=== PATIENT | male | born 1995 | race Caucasian/White ===

== ENCOUNTER 2022-05-30 06:13 | Day surgery (SDC) | payer OTHER, SELFPAY ==
[2022-05-30 06:57] VITALS: BP 113/84; PULSE 58; RESP 16; TEMP 36.4; O2SAT 100; BMI 28.5
[2022-05-30] MEDS: Lactated Ringers 1,000 ML 15 ML IV (07:01)
--- NOTE | 2022-05-30 08:01 | PCM.OPRPT ---
Problems Associated Problem List Diagnoses (1) Fracture of nasal bone with delayed healing: (2) Nasal septum fracture: Report of Operation Date of Procedure: 05/30/22 Pre-Operative Diagnosis: 1. nasal bone fracture 2. nasal septal fracture Post-Operative Diagnosis: 1. nasal bone fracture 2. nasal septal fracture Surgery/Procedure Performed:: 1. closed reduction nasal bones 2. closed reduction nasal septal fracture Surgeon: Ricky Patino Type of Anesthesia: General Description of Procedure: on the day of the procedure after appropriate informed consent was obtained, the patient was brought to the operating room and placed in supine position on the operating table. he was placed under general anesthesia by the anesthesiologist with an LMA. the bilateral nasal cavities were decongested with oxymetazoline soaked pledgets. the left nasal bone was lateralized with digital pressure and outfracturing with a boies elevator. septal forceps were used to correct the leftward septal deviation to the midline. a merocel was placed in the left nasal bone / valve area. he was awoken from anesthesia and transferred to the PACU in stable condition.
[2022-05-30] MEDS: Oxymetazoline 0.05% 1 SPRAY SPRAY.BTL 15 SPRAY (08:19)
[2022-05-30 08:43] VITALS: BP 113/84; BP 125/85; PULSE 69; RESP 16; TEMP 36.7; O2SAT 96
[2022-05-30 08:45] VITALS: BP 113/84; BP 128/81; PULSE 74; RESP 16; O2SAT 96
--- NOTE | 2022-05-30 08:58 | DCINST_ITS ---
Discharge Instructions Diet Discharge Diet: No restrictions Activity Discharge Activity: Return to Normal Activity Dressing / Incision Call your doctor if your incision/area has: Increased Pain/ Swelling Additional Dressing/Incision Instructions:: keep nasal cast dry. however, the morning of your follow up appt, get the cast very wet so it comes off easy in clinic. Follow Up Care Please Follow Up With: Ricky Patino MD When: 1 week Test Results: Test results from this visit will be discussed in further detail at your follow- up appointment, if applicable. Discharge Plan Admission Attending Provider: Ricky Patino Primary Care Provider: Jhoana Tomas Discharge Orders/Prescriptions Prescriptions: No Action NK Referrals / Follow Up: Jhoana Tomas DO [Primary Care Provider] - Disposition Disposition (needs filled in before D/C Order can be placed): Home, Self Care
[2022-05-30 09:00] VITALS: BP 113/84; BP 125/92; PULSE 67; RESP 16; O2SAT 98
[2022-05-30 09:14] VITALS: BP 113/84; BP 136/88; PULSE 63; RESP 16; TEMP 36.7; O2SAT 100
[2022-05-30] MEDS: Acetaminophen 325 MG Tablet 650 MG PO (09:23)
[2022-05-30 09:38] VITALS: BP 113/84; BP 129/92; PULSE 55; RESP 14; TEMP 36.4; O2SAT 100
== END 2022-05-30 09:42 | disposition home or self-care (01) ==
LOC: SDC 06:21 → AC 06:21
PROVIDERS: PCP Family Medicine; Referring Provider Otolaryngology; Visit Provider Otolaryngology
PROC: 0NSBXZZ Reposition Nasal Bone, External Approach (ICD-10-PCS; CPT 21320; principal; 2022-05-30 08:00)
DX: S02.2XXA Fracture of nasal bones, initial encounter for closed fracture (principal); W22.8XXA Striking against or struck by other objects, initial encounter; Y99.0 Civilian activity done for income or pay; Z87.891 Personal history of nicotine dependence
CPT/HCPCS: 21320; 21337; 00160; J7120; J2405